=== PATIENT | female | born 1965 | race Two or more races ===

== ENCOUNTER 2020-07-02 18:32 | Emergency (ER) | payer BC, OTHER ==
[~2020-07-02] VITALS: Ht 160 cm; Wt 63.5 kg
[2020-07-02 19:24] VITALS: BP 127/79
[2020-07-02] MEDS ORDERED: ACETAMINOPHEN/CODEINE#3 (300/30mg) TAB PO ONE (19:45)
[2020-07-02] MEDS ORDERED: ONDANSETRON ODT 4 MG TAB PO ONE (19:45)
[2020-07-02] MEDS ORDERED: KETOROLAC TROMETH 60MG/2ML VIAL IM ONE (21:30)
[2020-07-02] MEDS ORDERED: SODIUM CHLORIDE 0.9% 1,000 ML IV ONE (21:30)
[2020-07-02] MEDS ORDERED: KETOROLAC TROMETH 30 MG/ML 1ML VIAL IV ONE (21:30)
[2020-07-02 21:38] LABS: Basophils # (auto) 0 10 ^3/uL (0-0.2); Basophils % (auto) 0.6 % (0.0-2.0); Eosinophils # (auto) 0.3 10 ^3/uL (0-0.8); Hemoglobin 13.6 g/dL (12.2-16.2); Lymphocytes # (auto) 1.7 10 ^3/uL (0.4-5.4); Lymphocytes % (auto) 27.2 % (10.0-50.0); Monocytes # (auto) 0.5 10 ^3/uL (0-1.3); Neutrophils # (auto) 3.8 10 ^3/uL (1.6-8.6); White Blood Cell 6.4 10^3/uL (4.4-10.8)
[2020-07-02 21:40] LABS: Eosinophils % (auto) 4.6 % (0.0-7.0); Hematocrit 41.8 % (36.0-46.0); Mean Corpuscular Hemoglobin 27.1 pg (28.0-32.0); Mean Corpuscular Hgb Conc. 32.4 g/dL (32.0-36.0); Mean Corpuscular Volume 83.4 fL (80.0-100.0); Monocytes % (auto) 7.3 % (0.0-12.0); Neutrophils % (auto) 60.3 % (37.0-80.0); Nucleated Red Blood Cells % 0.1 %; Platelet Count (auto) 268 10^3/uL (140-450); Red Blood Cells 5.02 10^6/uL (4.0-5.20); Red Cell Distribution Width 14.8 % (11.8-14.3)
[2020-07-02 21:57] LABS: Albumin 3.7 g/dL (3.4-5.0); BUN/Creatinine Ratio 32.8; Calcium 8.7 mg/dL (8.5-10.1); Potassium 3.6 mmol/L (3.5-5.1)
[2020-07-02 22:00] LABS: Bilirubin, Total 0.3 mg/dL (0.2-1.0); Total Protein 8.1 g/dL (6.4-8.2)
[2020-07-02 22:02] LABS: INR 1.07 (0.9-1.15); Partial Thromboplastin Time 25.9 sec (23.0-31.2)
== END 2020-07-02 23:01 | disposition home or self-care (01) ==
LOC: ER 18:32
DX: R51.9 Headache, unspecified (principal)
CPT/HCPCS: 36415; 70450; 80053; 85025; 85610; 85730; 96361; 96374; 99284; J1885; Q0162

== ENCOUNTER 2022-08-14 09:00 | Emergency (ER) | payer BC ==
[~2022-08-14] VITALS: Ht 160 cm; Wt 60.1 kg
[2022-08-14 09:51] VITALS: BP 125/76
[2022-08-14] MEDS ORDERED: IBUP600T27 PO (11:17)
== END 2022-08-14 11:20 | disposition home or self-care (01) ==
LOC: ER 09:00
DX: S93.402A Sprain of unspecified ligament of left ankle, initial encounter (principal); W18.00XA Striking against unspecified object with subsequent fall, initial encounter; Y93.89 Activity, other specified; Y92.89 Other specified places as the place of occurrence of the external cause; Y99.8 Other external cause status
CPT/HCPCS: 73610; 73630

== ENCOUNTER 2024-11-26 10:41 | Emergency (ER) | payer BC, SELFPAY ==
[~2024-11-26] VITALS: Ht 160 cm; Wt 69.4 kg
[~2024-11-26 10:41] MED LIST: IBUP-1454 PO
[2024-11-26 10:43] VITALS: TEMP 98.8
--- NOTE | 2024-11-26 11:22 | DVH ---
XY L WRIST 3+ VIEW XRAY, INDICATION: INJURY RO FX TECHNICAL DATA: Frontal , bilateral oblique, and lateral views were obtained of the left wrist. COMPARISON: XY L FOOT 3 VIEW XRAY on DOS: 08/14/22 FINDINGS: No fracture is identified. Joint spaces are maintained. Alignment is anatomic. Ulnar variance is neut ral. Soft tissues are within normal limits. IMPRESSION: No acute fracture or dislocation of the left wrist.
--- NOTE | 2024-11-26 11:49 | ED.PDOC ---
Sandor. trauma (HPI) HPI Comments 59 y.o female presents to the ED for a chief complaint of left wrist pain s/p mechanical fall today. Patient reports tripping over her water hose and landing on her left wrist. Patient denies any LOC or head injuries. Patient has tenderness on palpation with limited ROM. No numbing or tingling sensation noted. Chief Complaint: Upper Extremity Time Seen by MD: 11:42 Primary Care Provider: MILDRED Jay notes: Nurses Notes, Medications, Allergies Allergies: Coded Allergies: No Known Drug Allergy (Verified Allergy, Unknown, 07/02/20) Home Meds Active Scripts Ibuprofen (Ibuprofen) 600 Mg Tab, 1 TAB PO TID, #30 TAB Prov:MELCHOR THOMAS 08/14/22 Information Source: Patient Mode of Arrival: Ambulatory Severity: Moderate Timing: Hours Duration: Since onset Location: (L) Wrist Location of laceration: None Mechanism: Fall Associated signs and symtoms: Other Past Medical History PAST MEDICAL HISTORY: Denies Surgical History (Other): left ankle TOBACCO PRIZER History: No Pertinent TOBACCO PRIZER History Family History Family History: Reviewed,noncontributory to illness Social History Smoker: Non-Smoker Alcohol: Denies ETOH Use Drugs: Denies Drug Use Lives In: Home Constitutional: denies: chills, diaphoresis, fatigue, fever, malaise, sweats, weakness, others EENTM: denies: blurred vision, double vision, ear bleeding, ear discharge, ear drainage, ear pain, ear ringing, eye pain, eye redness, hearing loss, mouth pain, mouth swelling, nasal discharge, nose bleeding, nose congestion, nose pain, photophobia, tearing, throat pain, throat swelling, voice changes, others Respiratory: denies: cough, hemoptysis, orthopnea, SOB at rest, shortness of breath, SOB with excertion, stridor, wheezing, others Cardiovascular: denies: chest pain, dizzy spells, diaphoresis, Dyspnea on exertion, edema, irregular heart beat, left arm pain, lightheadedness, palpitations, PND, syncope, others Gastrointestinal: denies: abdomen distended, abdominal pain, blood streaked bowels, constipated, diarrhea, dysphagia, difficulty swallowing, hematemesis, melena, nausea, poor appetite, poor fluid intake, rectal bleeding, rectal pain, vomiting, others Genitourinary: denies: abnormal vagina bleeding, burning, dyspareunia, dysuria, flank pain, frequency, hematuria, incontinence, pain, , vagina discharge, urgency, others Neurological: denies: dizziness, fainting, headache, left sided numbness, left sided weakness, numbness, paresthesia, pre-existing deficit, right sided numbness, right sided weakness, seizure, speech problems, tingling, tremors, weakness, others Musculoskeletal: reports: others (left wrist pain ); denies: back pain, gout, joint pain, joint swelling, muscle pain, muscle stiffness, neck pain Integumetry: denies: bruises, change in color, change in hair/nails, dryness, laceration, lesions, lumps, rash, wounds, others Allergic/Immunocompromised: denies: Difficulty Healing, Frequent Infections, Hives, Itching, others Hematologic/Lymphatic: denies: anemia, blood clots, easy bleeding, easy bruising, swollen glands, others Psychiatric: denies: anxiety, bipolar disorder, depression, hopeless, panic disorder, schizophrenia, sleepless, suicidal, others All Other Systems: Reviewed and Negative Physical Exam General Appearance: Mild Distress HEENT: Normal ENT Inspection, Pharynx Normal, TMs Normal Neck: Full Range of Motion, Non-Tender, Normal, Normal Inspection Respiratory: Chest Non-Tender, Lungs Clear, No Accessory Muscle Use, No Respiratory Distress, Normal Breath Sounds Cardiovascular: No Edema, No JVD, No Murmur, No Gallop, Normal Peripheral Pulses, Regular Rate/Rhythm Breast Exam: Deferred Gastrointestinal: No Organomegaly, Non Tender, No Pulsatile Mass, Normal Bowel Sounds, Soft Genitalia: Deferred Pelvic: Deferred Rectal: Deferred Extremities: No calf tenderness, Normal capillary refill, Normal inspection, Normal range of motion, Non-tender, No pedal edema Musculoskeletal : Location: Left Extremity Location: Wrist Apperance: Swelling, Deformity, Limited ROM, Tenderness: Moderate Neurologic: Alert, cracking machine operator II-XII nml as Tested, No Motor Deficits, Normal Affect, Normal Mood, No Sensory Deficits Cerebellar Function: Normal Reflexes: Normal Skin: Dry, Normal Color, Warm Peripheral Pulses: 1+ carotid (R), 1+ carotid (L) Lymphatic: No Adenopathy Was a procedure done? Was a procedure done?: No Differential Diagnosis Multiple Trauma: Fractures, Contusion Neck Injury: N/A X-Ray, Labs, Meds, VS Vital Signs Date Time Temp Pulse Resp B/P (MAP) Pulse Ox O2 Delivery O2 Flow Rate FiO2 11/26/24 10:43 98.8 110 16 152/94 98 98.8 X-Ray, Labs, Meds, VS Comment Course in the [employer] eventful patient came in with the upper extremity left wrist she fell and landed on the wrist she has pain and swelling The x-ray does not show any fracture but soft tissue swelling Patient will be treated with a wrist splint and anti-inflammatory Time of 1ST Reevaluation: 11:47 Reevaluation 1ST: Unchanged Time of 2ND Reevaluation: 11:56 Reevaluation 2ND: Improved Consultation: PCP Patient Education/Counseling: Diagnosis, Treatment, Prognosis, Need For Follow Up Family Education/Counseling: Diagnosis, Treatment, Prognosis, Need For Follow Up, No Family Present Departure 1 Departure Time of Disposition: 11:56 Impression: Primary Impression: Fall from slip, trip, or stumble Qualified Codes: W01.0XXA - Fall on same level from slipping, tripping and stumbling without subsequent striking against object, initial encounter Additional Impression: Left wrist sprain Qualified Codes: S63.522A - Sprain of radiocarpal joint of left wrist, initial encounter Disposition: 01 HOME / SELF CARE / HOMELESS Condition: Fair Additional Instructions: Local heat and follow up with your PCP e-Prescriptions Naproxen (Naproxen) 375 Mg Tab 375 MG PO TID for 10 Days, #30 TAB Prov: JING MAXWELL MD 11/26/24 Discharged With: Self Critical Care Note Critical Care Time?: No Stability Stability form required: No I personally scribed for JING MAXWELL MD ([email or web address]) on 11/26/24 at 11:49. Electronically submitted by Suzanne Vivar ([facility]). JING MAXWELL MD Nov 26, 2024 11:49
[2024-11-26] MEDS ORDERED: NAPR-957 PO (11:59)
[2024-11-26 12:02] VITALS: BP 146/78; PULSE 77; RESP 16; O2SAT 96
== END 2024-11-26 15:41 | disposition home or self-care (01) ==
LOC: ER 10:41
DX: S63.592A Other specified sprain of left wrist, initial encounter (principal); W01.0XXA Fall on same level from slipping, tripping and stumbling without subsequent striking against object, initial encounter; Y93.89 Activity, other specified; Y92.89 Other specified places as the place of occurrence of the external cause; Y99.8 Other external cause status
CPT/HCPCS: 29125; 73110